=== PATIENT | female | born 1965 ===

== ENCOUNTER 2017-04-30 13:05 | Emergency (ER) | payer OTHER ==
[2017-04-30] MEDS ORDERED: SODIUM CHLORIDE 0.9% 1000 ML SOL IV SCH (13:30)
[2017-04-30 15:36] LABS: BASOPHILS % (AUTO) 1 % (0-3); EOSINOPHILS % (AUTO) 0 % (0-9); HEMATOCRIT 40 % (35-47); MEAN CORPUSCULAR HGB CONC 32.3 gm/dl (32.0-36.0); MEAN CORPUSCULAR VOLUME 85 fL (81-99); MONOCYTES % (AUTO) 9.2 % (0-12); NEUTROPHILS % (AUTO) 73.9 % (37-80)
[2017-04-30 15:39] LABS: ALT 44 IU/L (14-63); CALCIUM 10.2 mg/dl (8.5-10.1); GLOM FILT RATE 18 mL/min (>60); POTASSIUM 3.8 mMol/L (3.5-5.1)
[2017-04-30 15:44] LABS: SODIUM 127 mMol/L (136-145)
[2017-04-30 15:53] LABS: ANISOCYTOSIS SLIGHT AMT
[2017-04-30 15:54] LABS: TARGET CELLS PRESENT
[2017-04-30 16:15] VITALS: TEMP 97.8
[2017-04-30 17:39] VITALS: RESP 16
[2017-04-30 17:40] VITALS: BP 99/67; PULSE 99; O2SAT 98
== END 2017-04-30 17:40 | DRG 641 ==
LOC: ED 13:05
DX: E86.0 Dehydration (principal); W19.XXXA Unspecified fall, initial encounter
CPT/HCPCS: 80053; 84484; 85025; 99285

== ENCOUNTER 2017-06-26 09:45 | Emergency (ER) | payer OTHER ==
[2017-06-26] MEDS ORDERED: NITROGLYCERIN 5 MG/ML 50 MG in DEXTROSE 250 ML 250 ML IV PRN (10:06)
[2017-06-26] MEDS ORDERED: NITROGLYCERIN 0.4 MG TAB SL PRN (10:06)
[2017-06-26] MEDS ORDERED: SODIUM CHLORIDE 0.9% FLUSH 10 ML SOL IV SCH (10:15)
[2017-06-26 10:16] VITALS: TEMP 98.2; O2SAT 100
[2017-06-26] MEDS ORDERED: MORPHINE SULFATE 10 MG/ML SOL ONE ×2 (10:24→14:31)
[2017-06-26] MEDS: MORPHINE SULFATE 10 MG/ML SOL IV PRN ×3 (10:30→14:35)
[2017-06-26 10:36] LABS: BASOPHILS % (AUTO) 1 % (0-3); EOSINOPHILS % (AUTO) 1 % (0-9); HEMATOCRIT 29 % (35-47); MEAN CORPUSCULAR HGB CONC 34.8 gm/dl (32.0-36.0); MEAN CORPUSCULAR VOLUME 83 fL (81-99); MONOCYTES % (AUTO) 4.7 % (0-12); NEUTROPHILS % (AUTO) 72.1 % (37-80)
[2017-06-26 10:44] LABS: POTASSIUM 3.7 mMol/L (3.5-5.1)
[2017-06-26] MEDS ORDERED: AZITHROMYCIN 250 MG TAB PO ONE (13:37)
[2017-06-26] MEDS ORDERED: CEFTRIAXONE 1 GM PDS IM ONE (13:37)
[2017-06-26 13:39] VITALS: BP 90/61; PULSE 111; RESP 24
[2017-06-26] MEDS ORDERED: CEFTRIAXONE 1 GM PDS ONE (13:57)
[2017-06-26] MEDS ORDERED: AZITHROMYCIN 250 MG TAB ONE (13:57)
[2017-06-26] MEDS ORDERED: LIDOCAINE HCL 1% MPF SOL ONE ×3 (13:59→14:02)
[2017-06-26] MEDS ORDERED: LIDOCAINE HCL 1% MPF SOL INFIL ONE (14:10)
== END 2017-06-26 15:25 | DRG 313 ==
LOC: ED 09:45
DX: R07.9 Chest pain, unspecified (principal); R06.02 Shortness of breath; R91.8 Other nonspecific abnormal finding of lung field; Z86.79 Personal history of other diseases of the circulatory system; Z72.0 Tobacco use
CPT/HCPCS: 36415; 71010; 71275; 80048; 83880; 84484; 85025; 85378; 85610; 85730; 93005; 96372; 96374; 99284; 99285; J0696; J2270; J2001